=== PATIENT | male | born 1965 | race Caucasian/White ===

== ENCOUNTER → 2017-11-17 10:33 | Outpatient (CLI) | payer BC, SELFPAY ==
[2017-11-17 12:03] LABS: Absolute Lymphocyte Count 1.09 X10^3/ul (0.83-4.51); Absolute Neutrophil Count 2.3 X10^3/uL (2.0-7.7); Basophil# 0.04 X10^3/uL; Eosinophil# 0.12 X10^3/uL; Hematocrit 44.4 % (40-54); Hemoglobin 15.1 g/dl (13.0-16.5); Lymphocyte # 1.09 X10^3/ul (4.0); Lymphocyte % 27.7 % (19-41); Mean Corpuscular Volume 97.2 fL (80-94); Mean Platelet Vol. 9.4 fl (6.2-12.0); Monocyte# 0.42 X10^3/uL; Monocyte% 10.7 % (0-10); Neutrophil # 2.26 X10^3/uL (2.7-7.7); Neutrophil % 57.3 % (47-70); Platelet Count 259 K/mm3 (150-450); RBC Distribution Width CV 12.1 % (11.6-14.6); RBC Distribution Width SD 42.2 fl (35.1-43.9); Red Blood Count 4.57 M/mm3 (4.6-6.2); White Blood Count 3.9 K/mm3 (4.4-11.0)
[2017-11-17 12:20] LABS: POSITIVE COUNT NO; POSITIVE DIFFERENTIAL NO; POSITIVE MORPHOLOGY NO
[2017-11-17 12:28] LABS: BUN 12 mg/dL (7-18); Glucose 84 mg/dL (74-106)
[2017-11-17 12:29] LABS: ALB/GLOB Ratio 0.9 RATIO (0.9-2.4); AST(SGOT) 28 U/L (15-37); Alanine Aminotransfer ALT/SGPT 29 U/L (16-61); Albumin, Serum 3.6 g/dL (3.2-5.0); Alkaline Phosphatase 77 U/L (45-117); Anion Gap 8 (5-15); BUN/Creat Ratio 10.9 RATIO (10-20); Calcium,Total 8.7 mg/dL (8.5-10.1); Chloride 105 mmol/L (98-107); EST Glomerular Filtration Rate 74 mL/min (>60); Est Glom Filt Rate - Afr Amer 90 mL/min (>60); Globulin 4.1 g/dL (2.2-4.2); Potassium 3.9 mmol/L (3.5-5.1); Protein, Total 7.7 g/dL (6.4-8.2); Sodium Level 141 mmol/L (136-145); Thyroid Stim Hormone (TSH) 1.41 uIU/mL (0.358-3.74)
[2017-11-18 10:19] LABS: Hep C Antibodies 0.1 s/co ratio (0.0-0.9)
== END ==
PROVIDERS: Family Provider Family Medicine Geriatric Medicine; PCP Family Medicine Geriatric Medicine; Visit Provider Family Medicine Geriatric Medicine
DX: R53.83 Other fatigue (principal); Z13.89 Encounter for screening for other disorder
CPT/HCPCS: 36415; 80053; 84443; 85025; 86803

== ENCOUNTER → 2017-12-02 13:14 | Outpatient (CLI) | payer BC, SELFPAY | LOC: HPRAD 13:15 | PROVIDERS: Family Provider Family Medicine Geriatric Medicine; PCP Family Medicine Geriatric Medicine; Visit Provider Physician Assistant | DX: M89.8X1 Other specified disorders of bone, shoulder (principal) | CPT/HCPCS: 71100; 73010 ==

== ENCOUNTER → 2017-12-18 10:05 | Outpatient (CLI) | payer BC, SELFPAY ==
--- NOTE | 2017-12-18 10:07 | RAD_ITS ---
STUDY: X-RAY - RIGHT SCAPULA REASON FOR EXAM: Male, 52 years old. History of fracture. Follow-up exam. TECHNIQUE: 2 view(s) of the scapula were obtained. COMPARISON: None. FINDINGS: There again is fracture of the inferior body of the scapula unchanged since the prior examination. There may be mild ileus formation about the fracture site. Normal glenohumeral articulation. Normal acromioclavicular joint. Normal visualized humeral head. Normal visualized pulmonary apex. RAD/Scapula IMPRESSION: Fracture of the scapular body unchanged since the prior examination. Electronically Signed: Jesus Gustafson MD at 3:54 EDT Tel , Service support ,
== END ==
LOC: HPRAD 10:06
PROVIDERS: Family Provider Family Medicine Geriatric Medicine; PCP Family Medicine Geriatric Medicine; Visit Provider Physician Assistant
DX: S42.101A Fracture of unspecified part of scapula, right shoulder, initial encounter for closed fracture (principal)
CPT/HCPCS: 73010

== ENCOUNTER 2017-12-29 09:00 | Outpatient (RCR) | payer BC, SELFPAY ==
--- NOTE | 2017-12-08 08:00 | HP.PTEVAL ---
Patient's Visit Information DONNA NEFF is a 52 year old M referred to Physical Therapy by Alfredo Clayton with a diagnosis of Closed R scapular fracture.. Date of Evaluation: 12/08/17 Physical Therapist: Kelly Luong - Visit Plan Frequency: 3x /Week Duration: 3 Weeks Plan: Focus on shoulder ROM, scapular strength and stabilization with functional mobility. - Subjective Subjective: 3 weeks post status fx from falling down the stairs. Unsure if he hit his head but went home and went to bed. Woke up in the early AM and was in horrible pain then went to the ER. On x-ray showed non displaced scapular fracture. Pain is located along the spine and lower half of the scapular. Reports pain is sharp but does not radiate to his arm or spine. N/T when he is active for long periods of time. Was in sling outside of his home and tires easily. Pain at the worst is a 5/10 agg by movement but returnes to 0/10 when placed back at his side. Sleep is disturbed as he lays on his left side. Does not sleep well normally but this has affected his sleep. Preivous injury Early nerve injury to R shoulder lasted about a week diminished with anti-inflammatories. No medication for current condition. Fear of falling. Work: [employer] flo[employer] so does not have a specific job but is asked to fill in all over the shop. Lifting up to #50. Currently unable to work. Reaching out increased pain, reports feeling weakness. Goals: return to work, regain full use of arm. R hand dominant. No significant PMH. Denies GIL, blurred vision and dizziness. - Objective Posture: Slight rounded shoulders, FHP, R shoulder held close to body in IR position-no arm swing. No sling. AROM: R Shoulder flex: 105 deg, abduction 90 deg., ext. WFL, ER: 60 deg, IR reach to L3, pn. PROM R shoulder abd: 175 deg, flex: 150 deg Elbow: WFL Wrist: pain with R opposition to 4th digit. Strength: 2+/5 in all planes and was painful. Palpation: tender along distal scapula. Sensation: WNL - Goals Goal 1:: Patient will be compliant with HEP and progression. Goal Time Frame: 4-6 Weeks Goal 2:: Patient will demonstrate full AROM of R shoulder. Goal Time Frame: 4-6 Weeks Goal 3:: Patient will demonstrate ability to stack five 2# pound weights on overhead shelf. Goal Time Frame: 4-6 Weeks Goal 4:: Patient will return to work without restriction as allowed by MD. Goal Time Frame: 4-6 Weeks Goal 5:: Patient will maintain proper posture throughout treatment session to demonstrate increased scapular strength and stabilization. Goal Time Frame: 4-6 Weeks - Rehabilitation Potential Physical Therapy Diagnosis: Patient presents with hypomobility. Decreased ROM and strength of R shoulder leading to decreased function in ADL and ability to work. Rehabilitation Potential: Excellent - Anticipated Interventions Patient/Client Instruction: Educate patient on: Benefits of Fitness Program For the Purpose of:: To improve ability to perform ADL's Therapeutic Exercise to Include: Strength training, Endurance training, Coordination, Body mechanics, Postural training, Flexibilty training, Passive ROM, Active ROM, Scapular Strength/Stabilization For the Purpose of:: To improve muscle performance and motor function TENS: Yes Cryotherapy (ice pack, ice massage): Yes Thermo therapy (hot pack): Yes Ultrasound (thermal/non thermal): No For the Purpose of:: To decrease pain Thank you for the opportunity to evaluate your patient. For Medicare and Medicare HMO plans, please review the plan of care and approve it. It will need to be FAXED BACK to us at [phone] for Medicare purposes. Please let me know if there are questions or concerns regarding this plan of care. Physician Signature: Date:
--- NOTE | 2017-12-29 09:43 | HP.PTDCSUM ---
HP - PT D/C Summary It has been my pleasure to treat DONNA NEFF under orders from Alfredo Clayton, for the diagnosis of Closed R scapular fracture. for a total of 10 visit(s). Discharge Date: Please see the following information for a summary of their discharge status. - Subjective Subjective: Patient reports back to work last night 2-3/10 more in the rib area than the shoulder. He feels that he is 80% back to normal. Feels confident with the exercises at home. - Pain Right Shoulder Pain Intensity (Out of 10): 0 - Overall Improvement % Improvement: 80 - Objective Objective/Function: Posture: Slight rounded shoulders, FHP, no guarding of the right UE. AROM: R Shoulder flex: 170 deg, abduction 180 deg., ext. WFL, ER: 60 deg, IR reach to T5. 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 Strength: 4+/5 in all planes with no increased pain Palpation: tender along distal scapula. Sensation: WNL - Goals Goal 1:: Patient will be compliant with HEP and progression. Goal Progress: Goal Met Goal 2:: Patient will demonstrate full AROM of R shoulder. Goal Progress: Goal Met Goal 3:: Patient will demonstrate ability to stack five 2# pound weights on overhead shelf. Goal Progress: Goal Met Goal 4:: Patient will return to work without restriction as allowed by MD. Goal Progress: Goal Met Goal 5:: Patient will maintain proper posture throughout treatment session to demonstrate increased scapular strength and stabilization. - Plan Plan: Discharge to [facility] through health and wellness - D/C Information If there are questions or concerns regarding this patient's physical therapy, please feel free to call me at [phone]. Thank you for the referral of this patient. Sincerely, Kelly Luong
== END 2017-12-29 19:00 | disposition home or self-care (01) ==
LOC: PT 09:00
PROVIDERS: Family Provider Family Medicine Geriatric Medicine; PCP Family Medicine Geriatric Medicine; Visit Provider Family Medicine Geriatric Medicine
DX: S42.19 Fracture of other part of scapula (principal)
CPT/HCPCS: 97110; 97161; 97164

== ENCOUNTER → 2018-01-22 08:01 | Outpatient (CLI) | payer BC, SELFPAY ==
--- NOTE | 2018-01-22 08:03 | RAD_ITS ---
STUDY: X-RAY - RIGHT SCAPULA REASON FOR EXAM: Male, 52 years old. History of scapular fracture. TECHNIQUE: 2 view(s) of the scapula were obtained. COMPARISON: Comparison is made with prior examination dated December 18, 2017. FINDINGS: Interval fracture along the inferior aspect of the right scapula. Alignment is maintained. Normal glenohumeral articulation. Normal acromioclavicular joint. Normal visualized humeral head. Normal visualized pulmonary apex. RAD/Scapula IMPRESSION: Healing fracture along the inferior aspect of the scapula. The alignment is maintained. Electronically Signed: Baltazar Bo MD at 15:08 EDT Tel [phone], Service support ,
== END ==
LOC: HPRAD 08:02
PROVIDERS: Family Provider Family Medicine Geriatric Medicine; PCP Family Medicine Geriatric Medicine; Referring Provider Physician Assistant; Visit Provider Physician Assistant
DX: S42.101A Fracture of unspecified part of scapula, right shoulder, initial encounter for closed fracture (principal)
CPT/HCPCS: 73010